=== PATIENT | male | born 1965 | race Caucasian/White ===

== ENCOUNTER 2017-07-12 11:11 | Inpatient (IN) | payer OTHER ==
[2017-06-28 11:28] VITALS: BMI 32.0
--- NOTE | 2017-06-28 12:19 | PAT Medication Instructions ---
Service Date Jun 28, 2017. Current Home Medication List Amlodipine Besylate (Norvasc), 5 MG PO QAM Buspirone Hcl (Buspirone Hcl), 10 MG PO BID Hydrochlorothiazide (Hctz), 12.5 MG PO QAM Lovastatin (Mevacor), 40 MG PO QPM Meloxicam (Mobic), Unknown Dose PO QAM Metoprolol Succinate (Toprol Xl), 50 MG PO QAM Oxcarbazepine (Trileptal), 1,200 MG PO QPM Oxymorphone Hcl (Oxymorphone Hydrochloride), 10 MG PO QID PRN for PRN Oxymorphone Hcl (Oxymorphone Hydrochloride), 1 TAB PO BID Potassium Ext Rel (Klor-Con), 20 MEQ PO QAM Quetiapine Fumarate (Seroquel), 800 MG PO QPM Sertraline Hcl (Zoloft), 150 MG PO QAM Medication Instructions For Your Scheduled Surgery - Hold the following medications per your surgeon's instructions: Meloxicam (Mobic), Unknown Dose PO QAM - Hold the following medications the morning of surgery: Potassium Ext Rel (Klor-Con), 20 MEQ PO QAM Hydrochlorothiazide (Hctz), 12.5 MG PO QAM - Take the following medications the morning of surgery with a sip of water: Sertraline Hcl (Zoloft), 150 MG PO QAM Oxymorphone Hcl (Oxymorphone Hydrochloride), 1 TAB PO BID (can take up to four hours before surgery) Oxymorphone Hcl (Oxymorphone Hydrochloride), 10 MG PO QID PRN for PRN (can take up to four hours before surgery) Metoprolol Succinate (Toprol Xl), 50 MG PO QAM Buspirone Hcl (Buspirone Hcl), 10 MG PO BID Amlodipine Besylate (Norvasc), 5 MG PO QAM - Take the following medications as scheduled the night before surgery: Quetiapine Fumarate (Seroquel), 800 MG PO QPM Oxymorphone Hcl (Oxymorphone Hydrochloride), 1 TAB PO BID Oxcarbazepine (Trileptal), 1,200 MG PO QPM Lovastatin (Mevacor), 40 MG PO QPM Buspirone Hcl (Buspirone Hcl), 10 MG PO BID If you have any questions please call us at [phone] or [phone] or [phone]
--- NOTE | 2017-06-28 13:32 | DIAGNOSTIC IMAGING REPORT ---
CHEST PREADMISSION(PA/LAT) CLINICAL HISTORY: 52 years-old Male presenting with preoperative assessment. TECHNIQUE: PA and lateral views of the chest were obtained. COMPARISON: 12/03/2014. FINDINGS: Cardiomediastinal silhouette normal. Lungs and pleural spaces clear. Degenerative changes of the thoracic spine. Upper abdomen normal. IMPRESSION: 1. No acute cardiopulmonary disease. Electronically signed by: Suhas Polanco M.D. 06/28/2017 1:31 PM Dictated Date/Time: 06/28/2017 1:30 PM
[2017-06-28 14:22] LABS: URINE APPEARANCE CLEAR (CLEAR); URINE BILIRUBIN NEG (NEG); URINE COLOR DK YELLOW; URINE NITRITE NEG (NEG); URINE SPECIFIC GRAVITY 1.021 (1.000-1.030); UROBILINOGEN NEG (NEG); ZZUR CULT IF INDIC CLEAN CATCH NO
[2017-06-28 14:22] LABS: BASO % 0.5 %; BASO ABS # 0.04 K/uL (0-0.2); COMPLETE YES; EOS % 4.8 %; HEMATOCRIT 37.9 % (42-52); IG% 0.7 %; LYMPH % 33.8 %; LYMPH ABS # 2.91 K/uL (1.2-3.4); MEAN CELL VOLUME 88.3 fL (80-100); MEAN CORPUSCULAR HEMOGLOBIN 30.5 pg (25-34); MEAN CORPUSCULAR HGB CONC 34.6 g/dl (32-36); MEAN PLATELET VOLUME 10.7 fL (7.4-10.4); NEUT % 52.2 %; PLATELET COUNT 217 K/uL (130-400); RED BLOOD COUNT 4.29 M/uL (4.7-6.1); WHITE BLOOD COUNT 8.61 K/uL (4.8-10.8)
[2017-06-28 14:27] LABS: MANUAL MICROSCOPIC REQUIRED? NO; REVIEW REQ? NO
[2017-06-28 14:41] LABS: CALCIUM 9.6 mg/dl (8.5-10.1); CREATININE 1.3 mg/dl (0.60-1.40); POTASSIUM 4.6 mmol/L (3.5-5.1)
[2017-07-12] VITALS (7 sets, daily range): BP systolic 108–158; BP diastolic 72–91; PULSE 66–79; TEMP 37–37.6; O2SAT 94–97; Ht 165.1 cm; Wt 87.8 kg
[~2017-07-12] VITALS: Ht 165.1 cm; Wt 87.8 kg
[~2017-07-12 11:11] MED LIST: AMLO5TAB2 PO; BUSP-8 PO; CEFAZOLIN 2000 MG/60 ML D5W IV SCH; CLINDAMYCIN 600 MG/54 ML D5W IV SCH; HYDR25TA4 PO; LACTATED RINGER'S 1000ML 1,000 ML IV SCH; LOVA40TA3 PO; MELO7.5T5 PO; METO-217 PO; OXCA600T3 PO; OXYM1TAB42 PO; OXYMTAB2 PO; POTA20TA16 PO; QUET400T PO; SERT1TAB68 PO
--- NOTE | 2017-07-12 11:59 | History & Physical Bridge Note ---
H&P Re-Evaluation Bridge Note: I have examined the patient, reviewed the History & Physical and in the interval since the performance of the History & Physical I have noted the following changes of clinical significance: No changes noted
--- NOTE | 2017-07-12 12:00 | History and Physical ---
History & Physical Date Jul 12, 2017. Chief Complaint Back and leg pain History of Present Illness The patient is a 52 year old male with complaints of back and leg pain Additional History Hepatic Disease: No Endocrine Disorder: No Kidney Disease: No Hypertension: Yes Heart Disease: No Bleeding Tendencies: No Infectious Diseases: No Allergies Coded Allergies: Penicillins (Verified Allergy, Severe, hard to breathe, rash, itchy, 07/12) Lorazepam (Unverified Adverse Reaction, Unknown, makes pt goofy, 07/12/17) Home Medications Scheduled Amlodipine Besylate (Norvasc), 5 MG PO QAM Buspirone Hcl (Buspirone Hcl), 10 MG PO BID Hydrochlorothiazide (Hctz), 12.5 MG PO QAM Lovastatin (Mevacor), 40 MG PO QPM Meloxicam (Mobic), Unknown Dose PO QAM Metoprolol Succinate (Toprol Xl), 50 MG PO QAM Oxcarbazepine (Trileptal), 1,200 MG PO QPM Oxymorphone Hcl (Oxymorphone Hydrochloride), 1 TAB PO BID Potassium Ext Rel (Klor-Con), 20 MEQ PO QAM Quetiapine Fumarate (Seroquel), 800 MG PO QPM Sertraline Hcl (Zoloft), 150 MG PO QAM Scheduled PRN Oxymorphone Hcl (Oxymorphone Hydrochloride), 10 MG PO QID PRN for PRN Physical Examination Skin: warm/dry, no rash Eyes: normal inspection, EOMI, sclerae normal ENT: normal ENT inspection, pharynx normal Head: normocephalic, atraumatic Neck: supple, no adenopathy, trachea midline Respiratory/Chest: lungs clear, normal breath sounds, no respiratory distress Cardiovascular: regular rate, rhythm, no edema, no murmur Abdomen / GI: normal bowel sounds, non tender Back: normal inspection Extremities: normal inspection, normal range of motion Neurologic/Psych: no motor/sensory deficits, alert, normal reflexes, oriented x 3 Diagnosis Lumbar spinal stenosis Plan of Treatment Lumbar decompression and fusion L2-3 with removal hardware L3 4
[2017-07-12] MEDS ORDERED: FENTANYL CITRATE INJ 50 MCG/1 ML 2 ML VIAL ONE ×2 (12:04→13:12)
[2017-07-12] MEDS ORDERED: MIDAZOLAM HCL 1 MG/ML 2ML VIAL ONE ×2 (12:04→16:04)
[2017-07-12] MEDS ORDERED: BUPIVACAINE/EPINEPHRINE 0.5% MPF 1:200,000 30 ML VIAL ONE (12:27)
[2017-07-12] MEDS ORDERED: BACITRACIN 50000 UNIT VIAL ONE (12:27)
[2017-07-12] MEDS ORDERED: CLINDAMYCIN 600 MG/54 ML D5W IV ONE (12:43)
[2017-07-12] MEDS ORDERED: LIDOCAINE HCL 2% 2 ML VIAL (20MG/ML) ONE (13:11)
[2017-07-12] MEDS ORDERED: PROPOFOL IV EMULSION 10 MG/ML 20 ML VIAL IV ONE (13:11)
[2017-07-12] MEDS ORDERED: DEXAMETHASONE SOD INJ 4 MG/ML VIAL ONE (13:11)
[2017-07-12] MEDS ORDERED: HYDROmorphone INJ 2 MG/ML SYR/VIAL ONE ×2 (13:13→15:31)
[2017-07-12] MEDS ORDERED: ROCURONIUM BROMIDE 10 MG/ML 5 ML VIAL IV ONE (13:28)
[2017-07-12] MEDS ORDERED: FLOSEAL HEMOSTATIC MATRIX 10ML TOP ONE (14:02)
[2017-07-12] MEDS ORDERED: GLYCOPYRROLATE INJ 0.2 MG/ML VIAL ONE (14:36)
[2017-07-12] MEDS ORDERED: SODIUM CHLORIDE 0.9% PF 50 ML VIAL ONE (14:36)
[2017-07-12] MEDS ORDERED: NEOSTIGMINE METHYLSULFATE 1 MG/ML 10ML VIAL ONE (14:36)
[2017-07-12] MEDS ORDERED: ONDANSETRON INJ 2 MG/ML 2 ML VIAL ONE (14:36)
[2017-07-12] MEDS: LACTATED RINGER'S 1000ML 1,000 ML IV SCH ×2 (14:51→21:03)
[2017-07-12] MEDS ORDERED: SODIUM CHLORIDE 0.9% 1000ML 1,000 ML IV SCH (14:51)
--- NOTE | 2017-07-12 14:58 | [facility] Operative Report ---
Operative Report Operative Date Jul 12, 2017. Pre-Operative Diagnosis lumbar Spinal Stenosis Post-Operative Diagnosis lumbar Spinal Stenosis Procedure(s) Performed #1 removal posterior instrumentation L3 4. #2 expiration of fusion L3 4. #3 lumbar decompression medial facetectomies foraminotomies L2 3. #4 posterior spinal fusion L2 3. #5 placement posterior instrumentation L2 3. #6 interbody fusion L2 3. #7 placement peek cage 12 x 22 mm at L2-3. #8 placement of locally harvested morcellized autograft in the posterior gutters. #9 placement of ostial amp bone graft in the interbody space and posterior gutters. Surgeon Dr. Isabelle Patricio Vault Service Mechanic Surgeon(s) Ludivina Thibodeaux PA-C Estimated Blood Loss 200mL Findings Severe spinal stenosis Specimens A: Explanted Hardware Description of Procedure Patient was met with preoperatively case discussed all questions addressed. After informed consent was obtained patient was taken back to the operative suite and intubated placed in a prone position the Sameer table on top of the Jack frame. All bony prominences well-padded eyes inspected to ensure no external pressure. This point the lumbar spine was prepped and draped in the normal sterile fashion. Sharp dissection with the assistance of Bovie cautery was performed onto an exposing the lamina and transverse processes of L2 and instrumentation L3 4 level bilaterally. And then proceeded remove the hardware at L3 4 explored the fusion mass noting it to be intact. Then performed a complete decompression of L2 addressing severe lateral recess and foraminal stenosis. Pedicle screws then placed in L2-L3 bilaterally with assistance of fluoroscopy and the probably size cari placed. Through a transforaminal approach on the right a complete discectomy was performed and plate created to subcortical bleeding bone and a 12 x 22 mm peek cage filled with ostial amp bone graft tapped in position. Brought in and compressed locked and final position bilaterally. The transverse processes of L2 3 burred to subcortical bleeding bone. Remaining osteo-amp local harvested morcellized autograft was placed in the posterior lateral gutters. 15 round LILY drain inserted. Incision was then closed with 1 Vicryl in the fascia 2-0 Vicryl subcutaneously 4-0 Monocryl for final skin closure Steri-Strip sterile dressing placed. Patient we can take PACU stable condition. Please note Do Gongora was present throughout the entire procedure involved in patient positioning complex portions of the surgery and final skin closure. I attest to the content of the Intraoperative Record and any orders documented therein. Any exceptions are noted below.
--- NOTE | 2017-07-12 14:59 | DIAGNOSTIC IMAGING REPORT ---
INTRAOPERATIVE RADIOGRAPHS CLINICAL HISTORY: L2-L3 spinal fusion. L3-L4 hardware removal. Fluoroscopy time: 7 seconds. FINDINGS: 2 spot fluoroscopic views of the lumbar spine are presented. There is evidence of discectomy at L2-L3 and L3-L4. There has been laminectomy and posterior fusion at L2 -L3. Interpedicular screws are present at both levels. The orthopedic hardware appears intact. There is minimal retrolisthesis at L2-L3. IMPRESSION: Intraoperative images from L2 -L3 spinal fusion as above. Electronically signed by: Chi Urena M.D. 07/12/2017 2:57 PM Dictated Date/Time: 07/12/2017 2:56 PM
[2017-07-12] MEDS ORDERED: ONDANSETRON INJ 2 MG/ML 2 ML VIAL IV PRN ×3 (15:00→15:45)
[2017-07-12] MEDS ORDERED: hydrOXYzine HCL 25 MG TAB PO PRN (15:00)
[2017-07-12] MEDS ORDERED: BISACODYL 10 MG SUPP PR PRN (15:00)
[2017-07-12] MEDS ORDERED: DO NOT ADMINISTER FLU VACCINE PRN ×3 (15:00)
[2017-07-12] MEDS ORDERED: ALUMINUM/MAGNESIUM SUSP 30 ML UDC PO PRN (15:00)
[2017-07-12] MEDS ORDERED: METOCLOPRAMIDE HCL INJ 5 MG/ML 2 ML VIAL IV PRN (15:00)
[2017-07-12] MEDS ORDERED: DO NOT ADMINISTER PNEUMOCOCCAL VACCINE PRN ×2 (15:00)
[2017-07-12] MEDS ORDERED: NALOXONE HCL 0.4 MG/1 ML VIAL/CARP IV PRN ×2 (15:00)
[2017-07-12] MEDS ORDERED: ACETAMINOPHEN 500 MG TAB PO PRN (15:00)
[2017-07-12] MEDS ORDERED: SOD PHOSPHATE/SOD BIPHOSPHATE ENEMA 132 ML BTL PR PRN (15:00)
[2017-07-12] MEDS ORDERED: PROMETHAZINE HCL INJ 12.5 MG in SODIUM CHLORIDE 0.9% 50ML 50 ML IV PRN (15:00)
[2017-07-12] MEDS ORDERED: ACETAMINOPHEN IV 100 ML IV PRN (15:00)
[2017-07-12] MEDS ORDERED: MAGNESIUM HYDROXIDE SUSP 30 ML UDC PO PRN (15:00)
[2017-07-12] MEDS ORDERED: FAMOTIDINE 20 MG TAB PO PRN (15:00)
[2017-07-12] MEDS ORDERED: HYDROmorphone HCL 0.5MG/ML 50 ML CASSETTE ONE (15:16)
[2017-07-12] MEDS ORDERED: EpHEDrine SULFATE INJ 50 MG/ML AMP IV PRN ×2 (15:45)
[2017-07-12] MEDS ORDERED: HYDROmorphone INJ 2 MG/ML SYR/VIAL IV PRN ×2 (15:45)
[2017-07-12] MEDS ORDERED: ATROPINE SULFATE 0.1 MG/ML 5ML SYR IV PRN ×2 (15:45)
[2017-07-12] MEDS ORDERED: PHENYLEPHRINE 100MCG/ML 5ML SYR IV PRN ×2 (15:45)
[2017-07-12] MEDS ORDERED: HYDROmorphone INJ 1 MG/ML SYR ONE (15:51)
[2017-07-12] MEDS ORDERED: HYDROmorphone INJ 0.5 MG/0.5 ML SYR ONE (16:21)
--- NOTE | 2017-07-12 16:31 | Anesthesiology Progress Note ---
Anesthesia Post Op Note Date & Time Jul 12, 2017 at 16:31 Vital Signs Pain Intensity: 7 Vital Signs Past 12 Hours Date Time Temp Pulse Resp B/P (MAP) Pulse Ox O2 Delivery O2 Flow Rate FiO2 07/12/17 16:20 77 16 151/98 100 Nasal Cannula 4 07/12/17 16:10 75 16 139/92 100 Nasal Cannula 4 07/12/17 16:00 73 16 150/93 100 Nasal Cannula 4 07/12/17 15:50 76 16 151/98 99 Nasal Cannula 4 07/12/17 15:40 71 16 137/89 100 Nasal Cannula 4 07/12/17 15:30 70 16 141/90 100 Oxymask 10 07/12/17 15:20 73 16 143/95 100 Oxymask 10 07/12/17 15:13 36.5 85 16 147/97 100 Oxymask 10 07/12/17 11:50 77 14 95 Room Air 07/12/17 11:48 37 79 20 108/81 94 Room Air Notes Mental Status: alert / awake / arousable, participated in evaluation Pt Amnestic to Procedure: Yes Nausea / Vomiting: adequately controlled Pain: adequately controlled Airway Patency, RR, SpO2: stable & adequate BP & HR: stable & adequate Hydration State: stable & adequate Anesthetic Complications: no major complications apparent
[2017-07-12] MEDS: HYDROmorphone HCL 0.5MG/ML 50 ML CASSETTE IV PRN ×2 (16:52→23:00)
[2017-07-12] MEDS: CLINDAMYCIN IV 600 MG in DEXTROSE 5% 50ML 50 ML IV SCH (20:29)
[2017-07-12] MEDS: OXCARBAZEPINE 150 MG TAB PO SCH (21:04)
[2017-07-12] MEDS: QUETIAPINE FUMARATE 200 MG TAB PO SCH (21:05)
[2017-07-12] MEDS: LOVASTATIN 20 MG TAB PO SCH (21:07)
[2017-07-12] MEDS: DOCUSATE SODIUM/SENNA 50/8.6MG TAB PO SCH (21:07)
[2017-07-12] MEDS: DEXAMETHASONE INJ 6 MG in SYRINGE 0 ML IV SCH (21:10)
[2017-07-13] VITALS (8 sets, daily range): BP systolic 95–131; BP diastolic 54–80; PULSE 63–77; TEMP 36.5–37.5; O2SAT 92–98
[2017-07-13] MEDS: LACTATED RINGER'S 1000ML 1,000 ML IV SCH (03:40)
[2017-07-13] MEDS: CLINDAMYCIN IV 600 MG in DEXTROSE 5% 50ML 50 ML IV SCH (03:40)
[2017-07-13] MEDS ORDERED: DC PCA ONE (06:00)
[2017-07-13] MEDS: DEXAMETHASONE INJ 6 MG in SYRINGE 0 ML IV SCH ×2 (06:07→13:18)
[2017-07-13] MEDS ORDERED: NURSING VERBAL MED ORDER ONE (06:15)
[2017-07-13 07:30] LABS: COMPLETE YES; HEMATOCRIT 31.6 % (42-52); IG% 0.3 %; LYMPH % 8.9 %; LYMPH ABS # 0.89 K/uL (1.2-3.4); MEAN CELL VOLUME 86.8 fL (80-100); MEAN CORPUSCULAR HEMOGLOBIN 29.9 pg (25-34); MEAN CORPUSCULAR HGB CONC 34.5 g/dl (32-36); MEAN PLATELET VOLUME 10.2 fL (7.4-10.4); MONO % 6.8 %; PLATELET COUNT 175 K/uL (130-400); RED BLOOD COUNT 3.64 M/uL (4.7-6.1); WHITE BLOOD COUNT 9.96 K/uL (4.8-10.8)
[2017-07-13] MEDS: OXYCODONE HCL IR 5 MG TAB (IMMEDIATE RELEASE) PO PRN ×3 (07:54→17:37)
[2017-07-13 08:07] LABS: CREATININE 0.84 mg/dl (0.60-1.40)
[2017-07-13 08:08] LABS: BUN/CREATININE RATIO 19.5 (10-20); CALCIUM 8.5 mg/dl (8.5-10.1); POTASSIUM 3.4 mmol/L (3.5-5.1)
[2017-07-13] MEDS ORDERED: RXC5 PO (08:23)
--- NOTE | 2017-07-13 08:24 | Discharge Instructions ---
Discharge Instructions Date of Service Jul 13, 2017. Admission Reason for Admission: Lumbar Spinal Stenosis Discharge Discharge Diagnosis / Problem: lumbar stenosis Discharge Goals Goal(s): Improve function Activity Recommendations Activity Limitations: per Instructions/Follow-up section . Instructions / Follow-Up Instructions / Follow-Up ACTIVITY RECOMMENDATIONS: SELF CARE INSTRUCTIONS AFTER THORACIC/LUMBAR FUSIONS 1. You may walk to your tolerance. It is good exercise for your legs and back. Expect some back and intermittent leg aches and pains. 2. You may perform "counter-top" level activities (make a sandwich, agustin with a project, etc.). 3. No bending or lifting of more than 10 pounds or back twisting of any nature (roll like a log when turning in bed). 4. You may ride in a car for 20-30 minutes at a time. No driving until after your first visit with your doctor. 5. Frequent changes of position and restricting sitting to 30 minutes at a time will help limit the amount of back spasms and stiffness you may experience. 6. You may discontinue the use of ambulatory aids (cane, crutches, etc.) once your strength and confidence allow. 7. You may senior communications engineer the shower and let water strike your incision when you arrive home at least once daily. Do not take a tub bath, sit in a hot tub or go into a swimming pool until after your first recheck in the office. SPECIAL CARE INSTRUCTIONS: VERY IMPORTANT TO READ AND REVIEW A. Your surgical incision has been closed with a cosmetic suture under the skin that will dissolve in about 6 weeks. In 14 days, you can use a pair of clean scissors and cut the suture that is left outside of the skin at the ends of your incision. 1. The small skin tapes can be removed 7 days after surgery if they have not fallen off by that point. 2. You may keep the wound open to air as much as possible to promote healing after post-op day number 5 unless told otherwise by your doctor. 3. If you think the wound looks like it is becoming infected (redness or worsening drainage) and/or you are experiencing fever, chill or worsening back pain and muscle spasms, contact the office so that we may evaluate you as soon as possible. B. Complications are uncommon, but please contact us if you have any signs or symptoms of: 1. wound infection (fever higher than 102.5 degrees F, redness, separation of wound, drainage, or increasing pain from the incision) 2. blood clots in legs (pain, swelling, redness and warmth in legs) 3. urinary tract infection (fever higher than 102.5 degrees F, burning upon urination or increased frequency of urination) 4. nerve problems (inability to walk on your toes or heels, numbness, loss of bowel or bladder control) 5. any other symptoms that concern you C. Please call the office at if you have any concerns or questions about your operation or recovery. D. No smoking! Smoking drastically decreases the chance of a solid fusion. E. Do not take any anti-inflammatory medications (Indocin, Advil, Motrin, Aspirin, Naprosyn, etc.) as these may inhibit the chance of a solid fusion. Tylenol is okay to take for pain. MANAGING PAIN AFTER SPINAL SURGERY 1. Narcotic medication is intended for short-term use and will be provided for surgical pain. Surgical pain usually lasts for a period of 4-6 weeks. Narcotic medication includes Percocet, Vicodin, Darvocet, Tylenol #3 or Lortab. 2. Longer-term pain is more appropriately treated with non-narcotic medication such as Tylenol ES. 3. Muscle spasm is not appropriately treated with narcotics. Muscle relaxers such as Soma, Flexeril or Skelaxin can be used along with Tylenol ES. 4. Remember that we all live with some "aches and pains". This is not unusual or uncommon after an injury or as we get older. a. Back pain is expected and may include muscle spasms for 4 to 6 weeks after surgery. The pain should gradually improve. If the pain worsens for no apparent reason, please contact the office. b. Intermittent leg pain may also be experienced and should not be concerned about unless it worsens for no apparent reason. If so, please contact the office. 5. We will provide appropriate medication within the normal guidelines of their prescribed use. We will also be very cautious and aware of potential abuse and extended duration of patients' medication needs. a. Pain medications are for your comfort and to assist with sleep and rest so that the tissue can heal. They are not provided in order to return to normal activity and should not be used through the day. To do so or worsening pain at night can result from ongoing tissue damage and development of tolerance to the prescribed medicine. 6. Please allow 2-3 days to process refills. Prescriptions will not be mailed but must be picked up at the office. FOLLOW UP VISIT: Keep your scheduled follow-up appointment. Any questions, please call the office at . Current Hospital Diet Patient's current hospital diet: Regular Diet Discharge Diet Recommended Diet: Regular Diet Procedures Procedures Performed: #1 removal posterior instrumentation L3 4. #2 expiration of fusion L3 4. #3 lumbar decompression medial facetectomies foraminotomies L2 3. #4 posterior spinal fusion L2 3. #5 placement posterior instrumentation L2 3. #6 interbody fusion L2 3. #7 placement peek cage 12 x 22 mm at L2-3. #8 placement of locally harvested morcellized autograft in the posterior gutters. #9 placement of ostial amp bone graft in the interbody space and posterior gutters. Pending Studies Studies pending at discharge: no Medical Emergencies . Who to Call and When: Medical Emergencies: If at any time you feel your situation is an emergency, please call 911 immediately. . Non-Emergent Contact Non-Emergency issues call your: Primary Care Provider . "Provider Documentation" section prepared by Charanjit Patricio. . VTE Core Measure Inpt VTE Proph given/why not?: Freda Villalobos, SCD's
--- NOTE | 2017-07-13 08:27 | Progress Note ---
Progress Note Date of Service Jul 13, 2017. Progress Note Patient is postop day #1. Back pain is controlled. No leg pain. On exam is good strength testing appears comfortable. Assessment status post lumbar decompression fusion replant this time initiate physical therapy advance his bowel regiment anticipate possible rehabilitation Monday or Monday.
[2017-07-13] MEDS: NICOTINE 21 MG/24 HR TDSY TD SCH (09:27)
[2017-07-13] MEDS: HYDROCHLOROTHIAZIDE 25 MG TAB PO SCH (09:27)
[2017-07-13] MEDS: POTASSIUM CHLORIDE 20 MEQ TABCR PO SCH (09:28)
[2017-07-13] MEDS: SERTRALINE HCL 100 MG TAB PO SCH (09:28)
[2017-07-13] MEDS: AMLODIPINE BESYLATE 5 MG TAB PO SCH (09:28)
[2017-07-13] MEDS: METOPROLOL SUCC 50MG EXT REL TAB PO SCH (09:29)
[2017-07-13] MEDS: HYDROmorphone INJ 0.5 MG/0.5 ML SYR IV PRN ×3 (10:53→22:00)
[2017-07-13] MEDS: QUETIAPINE FUMARATE 200 MG TAB PO SCH (20:33)
[2017-07-13] MEDS: LOVASTATIN 20 MG TAB PO SCH (20:33)
[2017-07-13] MEDS: DOCUSATE SODIUM/SENNA 50/8.6MG TAB PO SCH (20:33)
[2017-07-13] MEDS: OXCARBAZEPINE 150 MG TAB PO SCH (20:34)
[2017-07-14] MEDS: POLYETHYLENE (MIRALAX) 17 GM PACK PO SCH ×2 (04:39→12:00)
[2017-07-14] MEDS: OXYCODONE HCL IR 5 MG TAB (IMMEDIATE RELEASE) PO PRN ×4 (04:40→19:23)
[2017-07-14 07:45] VITALS: BP 129/88; PULSE 70; TEMP 37.3; O2SAT 97
[2017-07-14] MEDS: NICOTINE 21 MG/24 HR TDSY TD SCH (08:41)
[2017-07-14] MEDS: SERTRALINE HCL 100 MG TAB PO SCH (08:41)
[2017-07-14] MEDS: HYDROCHLOROTHIAZIDE 25 MG TAB PO SCH (08:41)
[2017-07-14] MEDS: AMLODIPINE BESYLATE 5 MG TAB PO SCH (08:42)
[2017-07-14] MEDS: POTASSIUM CHLORIDE 20 MEQ TABCR PO SCH (08:42)
[2017-07-14] MEDS: METOPROLOL SUCC 50MG EXT REL TAB PO SCH (08:42)
--- NOTE | 2017-07-14 12:50 | Discharge Summary ---
Orthopedic Discharge Summary Admission Date/Reason Jul 12, 2017 at 12:00 Lumbar Spinal Stenosis. Discharge Date/Disposition Jul 14, 2017 Rehab Diagnosis Principal Diagnosis: Lumbar spinal stenosis Admission Physical Exam As per Admitting History & Physical. Hospital Course The patient underwent lumbar decompression fusion tolerated this well as taken to the orthopedic floor postoperatively. He was up and amatory the next day progress postop day #2 LILY drain decreased properly subsequently discharge home. Discharge orders and instructions found the chart for further review. Discharge Instructions Please refer to the electronic Patient Visit Report (Discharge Instructions) for additional information.
[2017-07-14] MEDS ORDERED: NURSING VERBAL MED ORDER ONE (13:00)
[2017-07-14 14:55] VITALS: BP 117/74; PULSE 65; TEMP 36.8; O2SAT 98
[2017-07-14] MEDS: HYDROmorphone INJ 0.5 MG/0.5 ML SYR IV PRN (18:47)
[2017-07-14] MEDS: LOVASTATIN 20 MG TAB PO SCH (20:56)
[2017-07-14] MEDS: DOCUSATE SODIUM/SENNA 50/8.6MG TAB PO SCH (20:56)
[2017-07-14] MEDS: QUETIAPINE FUMARATE 200 MG TAB PO SCH (20:57)
[2017-07-14] MEDS: OXCARBAZEPINE 150 MG TAB PO SCH (20:58)
[2017-07-15 00:04] VITALS: BP 94/60; PULSE 73; TEMP 36.6; O2SAT 96
[2017-07-15 01:31] VITALS: BP 110/70
[2017-07-15] MEDS: OXYCODONE HCL IR 5 MG TAB (IMMEDIATE RELEASE) PO PRN ×2 (01:36→07:50)
[2017-07-15 07:25] VITALS: BP 107/73; PULSE 69; TEMP 36.7; O2SAT 99
[2017-07-15] MEDS: NICOTINE 21 MG/24 HR TDSY TD SCH (09:00)
[2017-07-15] MEDS: HYDROCHLOROTHIAZIDE 25 MG TAB PO SCH (10:14)
--- NOTE | 2017-07-15 10:14 | Progress Note ---
Progress Note Date of Service Jul 15, 2017. Progress Note Patient's back pain is well-controlled. Leg pain improved. Exam is good strength testing appears comfortable. Assessment status post lumbar decompression fusion replant this time will plan for discharge with home health today.
[2017-07-15] MEDS: SERTRALINE HCL 100 MG TAB PO SCH (10:15)
[2017-07-15] MEDS: POTASSIUM CHLORIDE 20 MEQ TABCR PO SCH (10:15)
[2017-07-15] MEDS: AMLODIPINE BESYLATE 5 MG TAB PO SCH (10:16)
[2017-07-15] MEDS: METOPROLOL SUCC 50MG EXT REL TAB PO SCH (10:16)
[2017-07-15 10:59] VITALS: BP 107/73; PULSE 69; TEMP 36.7; O2SAT 99
== END 2017-07-15 11:19 | disposition home health service (06) | DRG 455 ==
LOC: C.ACU 11:11 → C.3E 12:00 → ENRESERV 15:54
PROVIDERS: ADMIT Orthopaedic Surgery Orthopaedic Surgery of the Spine; ATTEND Orthopaedic Surgery Orthopaedic Surgery of the Spine
PROC: 0ST20ZZ Resection of Lumbar Vertebral Disc, Open Approach (ICD-10-PCS; principal; 2017-07-12 13:15)
PROC: 0SG0071 Fusion of Lumbar Vertebral Joint with Autologous Tissue Substitute, Posterior Approach, Posterior Column, Open Approach (ICD-10-PCS; principal; 2017-07-12 13:15)
PROC: 0SP004Z Removal of Internal Fixation Device from Lumbar Vertebral Joint, Open Approach (ICD-10-PCS; principal; 2017-07-12 13:15)
PROC: 0SG00AJ Fusion of Lumbar Vertebral Joint with Interbody Fusion Device, Posterior Approach, Anterior Column, Open Approach (ICD-10-PCS; principal; 2017-07-12 13:15)
DX: M48.061 Spinal stenosis, lumbar region without neurogenic claudication (principal); I10 Essential (primary) hypertension; Z79.899 Other long term (current) drug therapy